=== PATIENT | male | born 1985 | race Caucasian/White ===

== ENCOUNTER 2017-07-11 16:18 | Outpatient (CLI) | payer OTHER | END 2017-07-11 16:19 | disposition home or self-care (01) | LOC: BICRAD 16:18 | PROVIDERS: ATTEND Family Medicine | DX: Z01.810 Encounter for preprocedural cardiovascular examination (principal) | CPT/HCPCS: 71046 ==

== ENCOUNTER 2017-07-14 17:00 | Inpatient (IN) | payer OTHER ==
[2017-07-21] MEDS ORDERED: Heparin 5,000 UNITS/ML VIAL ONE (11:08)
[2017-07-21] MEDS ORDERED: CEFAZOLIN/Water 2 GM/20 ML SYRINGE ONE (11:08)
[2017-07-21] MEDS ORDERED: Midazolam HCl 2 mg/2 ml Vial ONE (11:14)
[2017-07-21] MEDS ORDERED: Succinylcholine Chloride 20 MG/ML 10 ml SYRINGE FS ONE (12:02)
[2017-07-21] MEDS ORDERED: Metoclopramide HCl 10 MG/2 ML VIAL ONE ×2 (12:02→12:31)
[2017-07-21] MEDS ORDERED: Glycopyrrolate 0.2 MG/ML 5 ML SYRINGE ONE (12:02)
[2017-07-21] MEDS ORDERED: PHENYLEPHRINE-NS 100 MCG/ML 10 ML SYRINGE ONE (12:02)
[2017-07-21] MEDS ORDERED: Ketorolac Tromethamine 30 MG/ML VIAL ONE (12:02)
[2017-07-21] MEDS ORDERED: Ondansetron HCl/PF 4 MG/2 ML Vial ONE ×2 (12:02→12:31)
[2017-07-21] MEDS ORDERED: PROPOFOL 200 MG/20 ML VIAL ONE (12:02)
[2017-07-21] MEDS ORDERED: Lidocaine 1% PF 5 ML VIAL ONE (12:02)
[2017-07-21] MEDS ORDERED: Dexamethasone 20 MG/5 ML VIAL ONE (12:02)
[2017-07-21] MEDS ORDERED: Bupivacaine/Epinephrine 0.25% 30 ML VIAL ONE (12:11)
[2017-07-21] MEDS ORDERED: Fentanyl 100 MCG/2 ML VIAL ONE ×3 (12:30→14:58)
[2017-07-21] MEDS ORDERED: HYDROmorphone 0.5 MG/0.5 ML SYRINGE ONE (12:30)
[2017-07-21] MEDS ORDERED: Zolpidem Tartrate 5 MG TAB PO PRN (15:12)
[2017-07-21] MEDS ORDERED: diphenhydrAMINE 25 MG CAP PO PRN (15:12)
[2017-07-21] MEDS ORDERED: diphenhydrAMINE 50 MG/ML VIAL IVP PRN ×2 (15:12→15:22)
[2017-07-21] MEDS ORDERED: Fentanyl 5000 MCG/250 ML CADD IVPB PRN (15:12)
[2017-07-21] MEDS ORDERED: Naloxone HCl 0.4 mg/ml Vial IV PRN (15:12)
[2017-07-21] MEDS ORDERED: diphenhydrAMINE 50 MG/ML VIAL IM PRN (15:12)
[2017-07-21] MEDS ORDERED: Ondansetron HCl/PF 4 MG/2 ML Vial IVP PRN ×3 (15:12→15:22)
[2017-07-21] MEDS ORDERED: Promethazine HCl 25 MG/ML VIAL SLOW IVP PRN (15:12)
[2017-07-21] MEDS ORDERED: Promethazine HCl 25 MG/ML VIAL IM PRN ×3 (15:12→15:22)
[2017-07-21] MEDS ORDERED: Communication Order-Pharmacy FS SCH (15:15)
[2017-07-21] MEDS ORDERED: Dextrose 50% Abboject 50 ML SYRINGE SLOW IVP PRN (15:22)
[2017-07-21] MEDS ORDERED: hydrALAZINE 20 MG/ML VIAL SLOW IVP PRN (15:22)
[2017-07-21] MEDS ORDERED: Hydrocodone-Acetamin 15 ML UDCUP PO PRN (15:22)
[2017-07-21] MEDS ORDERED: Dextrose 5% in Water 1,000 ML IV PRN (15:22)
[2017-07-21] MEDS ORDERED: fentaNYL Citrate/PF 2,000 MCG in Sodium Chloride 0.9% 60 ML IV PRN (15:30)
[2017-07-21] MEDS: D5 1/2 NS w/20 mEq KCL 1,000 ML IV SCH ×2 (15:52→23:07)
[2017-07-21] MEDS: Acetaminophen 1,000 MG in Premix Bag 1 BAG IVPB SCH ×2 (18:15→23:35)
[2017-07-21 18:54] VITALS: BMI 53.8
[2017-07-21] MEDS ORDERED: Enoxaparin Sodium 40 MG/0.4 ML SYRINGE SC SCH (21:00)
[2017-07-21] MEDS: CEFAZOLIN/Water 2 GM/20 ML SYRINGE SLOW IVP SCH (21:55)
--- NOTE | 2017-07-21 21:58 | OP ---
DATE OF PROCEDURE: 07/21/2017 PREOPERATIVE DIAGNOSES: 1. Morbid obesity with a BMI of 57 2. Hypertension. POSTOPERATIVE DIAGNOSES: 1. Morbid obesity with a BMI of 57 2. Hypertension. 3. Ventral hernia. PROCEDURES PERFORMED: 1. Laparoscopic sleeve gastrectomy, [place] staple line reinforcements and 38-Arabic bougie. 2. EGD. SURGEON: Christopher Thakkar M.D. ANESTHESIA: General. ESTIMATED BLOOD LOSS: Minimal. COMPLICATIONS: None. SPECIMEN: Stomach. FINDINGS: Normal postoperative esophagogastroduodenoscopy. INDICATION: The patient is a 32-year-old male who presents for weight loss surgery. He has been to our informational seminar and had a preoperative dietitian visit as well as preop dietary education. He has met with the psychologist. He understands risks, benefits specific to sleeve gastrectomy as well as the potential for alternative procedures for weight loss. He gives consent today. TECHNIQUE: The patient was taken to the operating room and placed supine on the table. After genera l anesthetic was obtained, the arms and legs are double strapped to bariatric table. The abdomen was shaved, prepped, and draped in a sterile fashion. Left subcostal 5-mm Optiview trocar was placed in usual fashion. High-flow pneumoperitoneum was obtained. Left and right abdominal 12-mm trocars wer e placed as well as a right subcostal 5-mm port. All ports were placed under direct visualization. A 5-mm incision was made at the xiphoid and Guido used to raise the liver off the GE junction. S hort gastrics were taken down from the mid body of the stomach to the left clayton of the diaphragm. Th e left clayton, posterior fundus, and angle of His is completely dissected. All posterior attachments w ere taken down. The short gastrics were taken down to a distance of 5 cm proximal to the pylorus. O G tube was removed and a 38 bougie was brought in and its tip left in the antrum of the stomach. Mul tiple loads of an [place] stapling device was used to form the sleeve. The first is fired up at a di stance of 6 cm proximal to the pylorus angled up towards the incisura. Multiple loads then fired up along the incisura and the stomach is completely transected at the angle of His. The stomach was rem kingsley from left abdominal incision. This fascial defect closed using GraNee needle and 0 Vicryl tie. EGD scope was passed into the esophagus, stomach to the level of the duodenum without obstruction or stricture. There was no stricture at the incisura. There is no air leakage through the staple line . The EGD scope was used to decompress the stomach is pulled and removed. The Nathansen retractor w as removed under direct visualization without injury or bleeding. All port sites are removed under d irect visualization without bleeding and prep was let down. The patient had a ventral hernia. There was omental fat in it with several adhesions in the area. Decision was made not to repair this at t he time of surgery because mesh was not able to be placed. He will need a ventral hernia replaced at a later date. All incisions were irrigated and closed using 4-0 Monocryl and Dermabond. The patien t en route to recovery in stable condition. All instrument counts, needle counts, lap counts are cor rect.
[2017-07-22 05:20] LABS: #Basophils 0.1 thou/uL (0.0-0.2); #Lymphocytes 1.1 thou/uL (1.20-3.40); #Monocytes 0.7 thou/uL (0.11-0.59); #Neutrophils 7.6 thou/uL (1.40-6.50); %Basophils 1.3 % (0.0-1.0); %Eosinophils 0.1 % (0.0-10.0); %Lymphocytes 11.5 % (21.0-51.0); %Monocytes 7.2 % (0.0-10.0); %Neutrophils 79.9 % (42.0-75.0); Hemoglobin 14.7 g/dL (14.0-18.0); Mean Corpuscular HGB CONC 33.1 g/dL (32.0-36.0); Mean Corpuscular Hemoglobin 30.1 pg (27.0-31.0); Mean Corpuscular Volume 90.9 fl (80.0-94.0); Platelet Count 171 thou/uL (130-400); Red Blood Cell (RBC) Count 4.88 mill/uL (4.70-6.10); White Blood Cell (WBC) Count 9.5 thou/uL (4.8-10.8)
[2017-07-22 05:25] LABS: Anion Gap 11 mmol/L (10-20); BUN (Urea Nitrogen) 11 mg/dL (8.9-20.6); Calc. Creatinine Clearance 328 mL/min (70-130); Calcium 9.1 mg/dL (7.8-10.44); Carbon Dioxide 27 mmol/L (22-29); Chloride 103 mmol/L (98-107); Estimated GFR-MDRD Greater than 90; Glucose 133 mg/dL (70-105); Potassium 4.3 mmol/L (3.5-5.1); Sodium 137 mmol/L (136-145)
[2017-07-22] MEDS: CEFAZOLIN/Water 2 GM/20 ML SYRINGE SLOW IVP SCH (05:55)
[2017-07-22] MEDS: Acetaminophen 1,000 MG in Premix Bag 1 BAG IVPB SCH (06:27)
[2017-07-22] MEDS ORDERED: Fentanyl 100 MCG/2 ML VIAL SLOW IVP PRN (07:40)
[2017-07-22] MEDS ORDERED: D5 1/2 NS w/20 mEq KCL 1,000 ML IV SCH (07:45)
[2017-07-22 08:50] VITALS: BP 169/76; TEMP 99.1
[2017-07-22] MEDS ORDERED: Pantoprazole 40 MG VIAL IVP SCH (09:00)
== END 2017-07-22 10:46 | disposition home or self-care (01) | DRG 621 ==
LOC: SURG A 07-21 11:05
PROVIDERS: ADMIT Surgery; ATTEND Surgery
PROC: 0DB64Z3 Excision of Stomach, Percutaneous Endoscopic Approach, Vertical (ICD-10-PCS; principal; 2017-07-21)
PROC: 0DJ08ZZ Inspection of Upper Intestinal Tract, Via Natural or Artificial Opening Endoscopic (ICD-10-PCS; 2017-07-21)
DX: E66.01 Morbid (severe) obesity due to excess calories (principal); Z68.43 Body mass index [BMI] 50.0-59.9, adult; I10 Essential (primary) hypertension; K43.9 Ventral hernia without obstruction or gangrene
CPT/HCPCS: 36415; 80048; 85025; 88307; 88312; 94760; 96374; C9113; J0131; J1100; J1170; J1644; J1650; J1885; J2001; J2250; J2405; J2704; J2765; J3010; J7050

== ENCOUNTER → 2018-02-13 | Day surgery (SDC) | payer OTHER ==
[2018-01-30 11:55] VITALS: BMI 37.1
[~2018-02-13] MED LIST: Bupivacaine/Epinephrine 0.25% 30 ML VIAL ONE; CEFAZOLIN 2 GM/50 ML BAG ONE; Dexamethasone 20 MG/5 ML VIAL ONE; Fentanyl 100 MCG/2 ML VIAL ONE; Glycopyrrolate 0.2 MG/ML 5 ML SYRINGE ONE; HYDROcodone/Acetaminophen 5/325 mg Tablet ONE; Lidocaine 1% PF 5 ML VIAL ONE; Midazolam HCl 2 mg/2 ml Vial ONE; Ondansetron PF 4 MG/2 ML Vial ONE; PROPOFOL 200 MG/20 ML VIAL ONE; ePHEDrine/0.9% NaCl/PF SYRINGE 50 mg/10 ml ONE
--- NOTE | 2018-02-13 21:52 | OP ---
DATE OF PROCEDURE: 02/13/2018 PREOPERATIVE DIAGNOSIS: Incisional hernia. POSTOPERATIVE DIAGNOSIS: Incisional hernia. PROCEDURE PERFORMED: DA Panda laparoscopic incisional repair with mesh. Ventralex ST, 8 cm lower brule. ANESTHESIA: General. ESTIMATED BLOOD LOSS: Minimal. COMPLICATIONS: None. SPECIMEN: None. FINDINGS: Incisional hernia. DESCRIPTION OF PROCEDURE: The patient was taken to the operating room and laid supine on the operating room table. After general anesthetic was obtained, a Adorno was placed. The abdomen was shaved, prepped, and draped in a sterile fashion. Optiview 5 mm trocar was placed in the left subcostal under direct vision without injury. High-flow pneumoperitoneum was obtained. Left and right abdominal 8 mm robotic trocars were placed as well as the 5 mm trocar was switched out through a 11-mm balloon port. All ports were docked to the robot, to the console. The extensive omentum was removed from the hernia. All adhesions were taken down. A #1 Vicryl was used to close the fascial defect primarily. A piece of mesh was cut to 8 cm and its non-adherent surface marked, it was placed in the abdominal cavity. The non-adherent surface was left down the exposed mesh up against the posterior fascia. The mesh was sewn via 2-0 Vicryl to the posterior fascia circumferentially, it completely covered the defect closure. All port sites were infiltrated using local anesthetic. All needles were removed and accounted for. All ports were removed under direct visualization and pneumoperitoneum was let down. All incisions were closed using 4-0 Monocryl and Dermabond. The patient was sent to Recovery in stable condition. All instrument counts, needle counts, and lap counts were correct. Job ID: [id number]
== END ==
LOC: SDC 09:55
PROVIDERS: ATTEND Surgery
PROC: 0WUF4JZ Supplement Abdominal Wall with Synthetic Substitute, Percutaneous Endoscopic Approach (ICD-10-PCS; principal; 2018-02-13)
DX: K43.2 Incisional hernia without obstruction or gangrene (principal); I10 Essential (primary) hypertension; Z79.899 Other long term (current) drug therapy
CPT/HCPCS: 96374; C1781; J1100; J2001; J2250; J2405; J2704; J3010

== ENCOUNTER 2021-08-23 12:09 | Outpatient (CLI) | payer OTHER | END 2021-08-23 12:10 | disposition home or self-care (01) | LOC: BICRAD 12:09 | PROVIDERS: ATTEND Family Medicine | DX: R05.9 Cough, unspecified (principal); I10 Essential (primary) hypertension | CPT/HCPCS: 71046 ==